=== PATIENT | male | born 1965 | race African-American/Black ===

== ENCOUNTER → 2016-04-08 | Outpatient (CLI) | payer MEDICARE, MEDICAID ==
[~2016-04-08] MED LIST: ACETAMINOPHEN650 M1 PO; HYDROCHLOROTHIA25 MG PO; LOTENSIN20 MG PO; METFORMIN HCL850 MG PO; TENORMIN50 MG PO; TRUVADA TABLET1 EACH PO; UNOBMED; [UNRECOGNIZED DRUG - OTHER]; [UNRECOGNIZED DRUG - OTHER] SUBQ
--- NOTE | 2016-04-08 14:32 | Diagnostic Imaging Report ---
Indication: Abdominal pain Technique: Continuous helical transaxial imaging of the abdomen was obtained from the lung bases to the iliac crests during intravenous contrast administration. Coronal 2-D reformats were also obtained. Study obtained in a Siemens sensation [address] Total Dose length Product (DLP): [address] Dose Index Volume (CTDIvol): 18 mGy Comparison: None Findings: The lung bases are clear. There is a small hiatal hernia. Accessory spleen noted. No abnormalities of the liver, gallbladder, pancreas, adrenal glands or kidneys are identified. There is no evidence of bowel obstruction. No free fluid is seen within the visualized abdomen. At the level the umbilicus there is a small fat-containing umbilical hernia. Impression: Small fat-containing umbilical hernia. Negative exam otherwise The CT scanner at [facility] is accredited by the [employer] and the scans are performed using protocols designed to limit radiation exposure to as low as reasonably achievable to attain images of sufficient resolution adequate for diagnostic evaluation.
== END | disposition home or self-care (01) ==
LOC: CAT 08:38
DX: R10.9 Unspecified abdominal pain (principal); K42.9 Umbilical hernia without obstruction or gangrene
CPT/HCPCS: 74160; Q9967

== ENCOUNTER → 2016-05-18 | Outpatient (CLI) | payer MEDICARE, MEDICAID ==
--- NOTE | 2016-05-18 10:08 | Diagnostic Imaging Report ---
Indications: Neck pain radiating to right upper extremity for 2 weeks, history of cervical spine surgery 3 years ago Technique: Sagittal STIR and T1 weighted FLAIR, sagittal and axial T2 weighted fast spin echo , and axial 3-D COSMIC ASPIR sequences of the cervical spine were performed without IV gadolinium administration. Findings: Comparison: 10/04/2012 The C1-C2 level is unremarkable, aside from very mild hypertrophy of the retrobulbar soft tissues gently indenting the ventral surface of thecal sac.. Occipital-C1 and C1-2 alignments including atlantoaxial space are intact. Spinal canal, lateral recesses and neural foramina are normal in caliber. No change. The C2-C3 disc is normal in height and signal. Mild posterior midline bulge/protrusion. Facet joints and ligamenta flava are unremarkable. Spinal canal, lateral recesses and neural foramina are normal in caliber. No change. The C3-C4 disc significantly decreased in height with circumferential annular bulge-osteophyte complex. Superimposed central posterior protrusion.. . Mild right facet, bilateral ligamentous hypertrophy. Spinal canalnarrowed to 6 mm AP diameter. Spinal cord compressed. Lateral recesses moderately, and neural foramina severely narrowed bilaterally. No change.. The C4-C5 disc significantly decreased in height with circumferential annular bulge-osteophyte complex. Superimposed prominent broad-based central posterior protrusion. No significant annular bulge/protrusion or marginal osteophyte formation. Facet joints and ligamenta flava hypertrophied.. Spinal canalnarrowed to 6 mm AP diameter. Spinal cord compressed. Lateral recesses moderately, neural foramina severely narrowed bilaterally. No change. The C5-C6 disc significantly decreased in height with circumferential annular bulge-osteophyte complex.. . Facet joints and ligamenta flava mildly hypertrophied.. Spinal canal, lateral recesses normal caliber. Neural foramina moderately narrowed bilaterally. No change. The C6-C7 disc significantly decreased in height with circumferential annular bulge-osteophyte complex.. Superimposed posterior right paracentral focal protrusion. Facet joints mildly hypertrophied. No significant ligamentous hypertrophy.. Spinal canal, left lateral recess and neural foramina normal caliber. Right lateral recess mildly, neural foramen moderately narrowed. No change. The C7-T1 disc significantly decreased in height with circumferential annular bulge-osteophyte complex.. . Facet joints and ligamenta flava hypertrophied. Spinal canalnarrowed to 8 mm AP diameter. Lateral recesses and neural foramina mildly narrowed, right greater than left. No change. Spinal cord demonstrates contour flattening with diffusely increased signal on T2-weighted and STIR images were compressed at the C3-4 and C4-5 levels, unchanged. No intradural or extradural masses or fluid collections are demonstrated. Laminotomy defects again noted C3-C6. Overlying well-healed surgical scar again noted. The cervical vertebrae are normal in configuration and marrow signal characteristics , aside from degenerative changes described above. No fracture, lytic destruction, or other acute process is demonstrated. Paraspinous soft tissues are otherwise unremarkable. IMPRESSION: Multilevel degenerative disc disease, facet and ligamentous hypertrophy as described in detail level by level above. Significant spinal stenosis with cord compression at C3-4 and C4-5. Associated cord contour and signal changes chronic and unchanged. Lesser spinal stenosis at C7-T1 without cord compression, unchanged. Multilevel lateral recess and neural foraminal narrowing as described in detail level by level above, unchanged Evidence of previous surgery the C3-C6, unchanged No new abnormality identified.
== END | disposition home or self-care (01) ==
LOC: MRI 07:57
DX: M54.12 Radiculopathy, cervical region (principal); M50.30 Other cervical disc degeneration, unspecified cervical region; M48.02 Spinal stenosis, cervical region
CPT/HCPCS: 72141

== ENCOUNTER 2017-05-14 08:24 | Outpatient (CLI) | payer MEDICARE, MEDICAID ==
--- NOTE | 2017-05-14 14:22 | Diagnostic Imaging Report ---
Clinical Indication: Left lower quadrant abdominal pain Technique: Patient given oral contrast. IV administration nonionic contrast. Venous phase spiral acquisition obtained through the abdomen and pelvis. Multiplanar reconstructions were generated. Total dose length product 921.96 mGycm. CTDIvol(s) 18.4 mGy. Dose reduction achieved using automated exposure control Comparison: 04/08/2016 CT abdomen only Findings: There is a right hip arthroplasty prosthesis. This results streak artifact which may obscure pathology in the pelvis. Moderate amount of retained stool is seen in the distal colon. No evidence of diverticulosis or diverticulitis. The appendix is normal. Contrast is seen throughout the entirety of the small bowel, reaches as far distally as the distal transverse colon. No small bowel distention or small bowel wall thickening is demonstrated. No free or loculated intraperitoneal air or fluid is evident. The distal esophagus, stomach, duodenum are unremarkable. There is a tiny fat-containing umbilical hernia. The liver, gallbladder, bile ducts, pancreas, spleen, adrenals, right kidney are unremarkable. Subcentimeter low-attenuation lesions are seen in the left kidney which are too small to characterize also evident previously. No renal or ureteral calculi, hydronephrosis, or hydroureter demonstrated. There is an accessory splenule. No retroperitoneal or mesenteric mass or adenopathy. No pelvic mass or adenopathy. The included lung bases demonstrate minimal linear scarring on the left, unchanged. The bones are unremarkable.. Impression: No acute abnormality. No findings to explain stated clinical history of hematuria or left lower quadrant pain. Consider with and without contrast CT urogram to better assess stated clinical history of hematuria, however. Subcentimeter left renal low-attenuation lesions, too small to characterize, most likely benign simple cysts, also evident previously. No further follow-up necessary Other findings as noted, including small fat-containing umbilical hernia, left basilar pulmonary scarring, right hip prosthesis The CT scanner at [facility] is accredited by the [employer] and the scans are performed using protocols designed to limit radiation exposure to as low as reasonably achievable to attain images of sufficient resolution adequate for diagnostic evaluation.
== END 2017-05-14 10:24 | disposition home or self-care (01) ==
LOC: CAT 08:24
DX: R10.32 Left lower quadrant pain (principal); N28.9 Disorder of kidney and ureter, unspecified; K44.9 Diaphragmatic hernia without obstruction or gangrene; Z96.641 Presence of right artificial hip joint
CPT/HCPCS: 74177; Q9967

== ENCOUNTER 2017-12-07 09:10 | Outpatient (CLI) | payer MEDICARE, MEDICAID ==
--- NOTE | 2017-12-07 11:18 | Diagnostic Imaging Report ---
Indication: Abdominal pain Technique: Spiral acquisitions obtained through the abdomen and pelvis. Patient ingested oral contrast No IV contrast utilized, per referring physician request.. Multiplanar reconstructions were generated. Total dose length product 952.32 mGycm. CTDIvol(s) 18.4 mGy. Dose reduction achieved using automated exposure control Comparison: 05/14/2017 Findings: Again noted is a small fat-containing umbilical hernia. No other abdominal wall defects demonstrated. No evidence of inguinal hernia. Small bowel loops slightly bulge forward at the edge of the hernia but do not frankly enter it. The appendix is normal. The small bowel is incompletely opacified, but there is no evidence of small bowel distention or small bowel wall thickening. No evidence of diverticulosis or diverticulitis. No free or loculated intraperitoneal gas or fluid is evident. Somewhat prominent perigastric veins are noted in the lesser sac, appearing somewhat more prominent but in that on the prior study. The distal esophagus, stomach, duodenum are unremarkable. Lack of IV contrast limits assessment of the solid organs. The gallbladder, liver, pancreas, spleen are all unremarkable. There is an accessory splenule. The adrenals and kidneys are unremarkable. No retroperitoneal or mesenteric mass or adenopathy. There is a right hip prosthesis. This throws off streak artifact which may obscure pathology in the pelvis. The bones are otherwise unremarkable. The included lung bases are clear. There is no significant interim change Impression: Small fat-containing umbilical hernia, previously reported as unchanged, contains only fat. No other evidence of abdominal wall hernia No acute process Incidental findings as noted, including right hip prosthesis, small accessory splenule The CT scanner at [facility] is accredited by the [employer] and the scans are performed using protocols designed to limit radiation exposure to as low as reasonably achievable to attain images of sufficient resolution adequate for diagnostic evaluation.
== END 2017-12-07 11:10 | disposition home or self-care (01) ==
LOC: CAT 09:10
DX: K43.9 Ventral hernia without obstruction or gangrene (principal)
CPT/HCPCS: 74176